=== PATIENT | male | born 1965 | race Caucasian/White ===

== ENCOUNTER → 2022-01-01 | Outpatient (CLI) | payer OTHER, SELFPAY ==
[2022-01-01 20:55] LABS: Absolute Lymphocyte Count 2.78 X10^3/uL (0.83-4.51); Absolute Neutrophil Count 5.1 X10^3/uL (2.0-7.7); Basophil# 0.06 X10^3/uL; Basophil% 0.7 % (0-1); Eosinophil# 0.34 X10^3/uL; Eosinophils% 3.7 % (0-5); Hemoglobin 17.3 g/dL (13.0-16.5); Lymphocyte # 2.78 X10^3/ul (0.83-4.51); Lymphocyte % 30.3 % (19-41); Mean Corp Hgb Conc 33.9 g/dL (32-36); Mean Corpuscular Hgb 28.4 pg (27.0-32.0); Mean Corpuscular Volume 83.7 fL (80-94); Monocyte# 0.86 X10^3/uL; Monocyte% 9.4 % (0-10); NRBC Flagged by Analyzer 0 % (0-5); Neutrophil # 5.09 X10^3/uL (2.7-7.7); Neutrophil % 55.6 % (47-70); Platelet Count 240 K/mm3 (150-450); RBC Distribution Width CV 14.1 % (11.6-14.6); RBC Distribution Width SD 42.8 fl (35.1-43.9); Red Blood Count 6.09 M/mm3 (4.6-6.2); White Blood Count 9.2 K/mm3 (4.4-11.0)
[2022-01-01 21:03] LABS: Erythrocyte Sedimentation Rate 10 mm/hr (0-20)
[2022-01-01 21:13] LABS: ALB/GLOB Ratio 1.2 RATIO (0.9-2.4); AST(SGOT) 26 U/L (15-37); Alanine Aminotransfer ALT/SGPT 34 U/L (16-61); Albumin, Serum 3.8 g/dL (3.2-5.0); Alkaline Phosphatase 248 U/L (45-117); Anion Gap 10 (5-15); BUN 5 mg/dL (7-18); BUN/Creat Ratio 6.6 RATIO (10-20); Calcium,Total 8.6 mg/dL (8.5-10.1); Chloride 108 mmol/L (98-107); Creatinine, Serum 0.75 mg/dL (0.70-1.30); EST Glomerular Filtration Rate 115 mL/min (>60); Est Glom Filt Rate - Afr Amer 139 mL/min (>60); Ferritin 55 ng/mL (26-388); Globulin 3.1 g/dL (2.2-4.2); Glucose 99 mg/dL (74-106); Iron 46 ug/dL (65-175); Potassium 3.7 mmol/L (3.5-5.1); Protein, Total 6.9 g/dL (6.4-8.2); Sodium Level 142 mmol/L (136-145); T4 Free Direct 1.04 ng/dL (0.76-1.46); Thyroid Stim Hormone (TSH) 0.97 uIU/mL (0.358-3.74)
[2022-01-01 22:03] LABS: Vitamin B12 518 pg/mL (211-911); Vitamin D,25 Hydroxy 26.2 ng/mL
[2022-01-09 14:08] LABS: Lyme IgG P18 Ab Absent (.); Lyme IgG P23 Ab Absent (.); Lyme IgG P28 Ab Absent (.); Lyme IgG P30 Ab Absent (.); Lyme IgG P39 Ab Absent (.); Lyme IgG P41 Ab Absent (.); Lyme IgG P45 Ab Absent (.); Lyme IgG P58 Ab Absent (.); Lyme IgG P66 Ab Absent (.); Lyme IgG P93 Ab Absent (.); Lyme IgM P23 Ab Absent (.); Lyme IgM P39 Ab Absent (.); Lyme IgM P41 Ab Absent (.)
[2022-01-10 18:24] LABS: DHEA Sulfate 66.9 ug/dL (71.6-375.4); Lyme IgG WB Interpretation Negative (.); Lyme IgM WB Interpretation Negative (.)
== END | disposition home or self-care (01) ==
PROVIDERS: Visit Provider Nurse Practitioner Family
DX: R53.83 Other fatigue (principal); R06.02 Shortness of breath; F32.A Depression, unspecified; R41.3 Other amnesia; U09.9 Post COVID-19 condition, unspecified
CPT/HCPCS: 80053; 82306; 82607; 82627; 82728; 83540; 83735; 84403; 84439; 84443; 85025; 85652; 86140; 86617; 82626

== ENCOUNTER 2023-10-04 14:38 | Outpatient (RCR) | payer OTHER, SELFPAY ==
[2023-10-04 15:18] VITALS: BP 153/93; PULSE 64; RESP 20; TEMP 36.4; BMI 33.0
--- NOTE | 2023-10-04 16:38 | HP.PCM_ITS ---
History of Present Illness Date of Service: 10/04/23 Chief Complaint: Right ring finger injury History of Wound: 58 year old male presents for follow up on his right ring finger wound. The wound initially occurred 09/21/23 when he was trying to separate 2 fighting pet rabbits and his finger was punctured by the rabbit wire in the cage. He then proceeded to go to [place] for work. While there the pain and swelling got much worse. He went to the ED, was admitted for IV antibiotics and was taken to surgery for an operative debridement on 09/27/23 at [facility] in [place], [place]. His wound care was to place Xeroform gauze and cover with cling. He was not given any xeroform to do dressing changes so he and his went to a local pharmacy and purchased something green and non adherent gauze to put on it. They have been cleansing it with sterile saline. He is currently taking Linezolid, Levaquin and Metronidazole for his positive wound cultures. He does not know what bacteria he was positive for. We will attempt to obtain his medical records from the hospital in [place]. He denies fever, chills, nausea and vomiting at this time. Progress of Wound: Right volar ring finger on the proximal portion of the finger with an open wound that is pink and moist with a superficial portion that goes around the circumference of the finger. Incision goes onto the palm of his hand where there are sutures present. There is maceration in between the long and ring finger and between the ring and small finger. No tendon or bone visible. He is able to touch his thumb to his index finger only. He has minimal movement in his ring finger, long finger and small finger due to the amount of swelling and pain that he is experiencing at this time. [facility] Medical History (Updated 10/05/23 @ 17:06 by Sara Chambers NP, GRAZING AIDE-C) Hyperlipidemia Hypertension Allergy/AdvReac Type Severity Reaction Status Date / Time No Known Allergies Allergy Verified 10/04/23 15:42 Family History (Updated 10/05/23 @ 16:51 by Sara Chambers NP, GRAZING AIDE-C) Father , at age 39 of heart attack Heart disease Mother Diabetes Cancer Social History (Updated 10/05/23 @ 16:50 by Sara Chambers GRAZING AIDE, GRAZING AIDE-C) current occupational status: employed history of recent travel: Yes ([facility]) Smoking Status: Never smoker alcohol intake: current alcohol intake frequency: holidays/special occasions only ROS Constitutional Constitutional: Denies chills or fever(s) Eyes Eyes: Reports none ENT HEENT: Reports none Cardiovascular Cardiovascular: Denies chest pain or dyspnea Respiratory/Chest Respiratory/Chest: Denies cough or dyspnea Gastrointestinal Gastrointestinal: Denies diarrhea, nausea or vomiting Musculoskeletal Musculoskeletal: Reports joint stiffness, joint swelling and limited range of motion Integumentary Integumentary: Reports wounds Neurologic Neurologic: Reports burning sensations Psychiatric Psychiatric: Reports none Endocrine Endocrinology: Reports none Vital Signs Vital Signs Vital Signs: 10/04/23 15:18 Temperature 97.6 F L Temperature Source Temporal Pulse Rate 64 Respiratory Rate 20 H Blood Pressure 153/93 H Blood Pressure Mean 113 Blood Pressure Source Monitor Weight Weight: 230 lb 1.011 oz Body Mass Index (BMI) 33.0 Physical Exam Const alert, oriented x3 and no apparent distress General Appearance: cooperative HEENT normocephalic Head and Scalp: normocephalic Eyes General Eye: normal appearance of both eyes Neck full ROM Lymph Lymphatic: no lymphedema noted Resp normal respiratory effort, normal air movement, no use of accessory muscles and clear to auscultation bilaterally Effort and Inspection: able to speak in complete sentences Cardio regular rate and regular rhythm GI soft to palpation and non-tender Auscultation: normoactive bowel sounds Back/Spine normal ROM Extremity normal capillary refill Peripheral Pulses: Yes pulses 2+ throughout Skin Wound Narrative: Right volar ring finger on the proximal portion of the finger with an open wound that is pink and moist with a superficial portion that goes around the circumference of the finger. Incision goes onto the palm of his hand where there are sutures present. There is maceration in between the long and ring finger and between the ring and small finger. No tendon or bone visible. He is able to touch his thumb to his index finger only. He has minimal movement in his ring finger, long finger and small finger due to the amount of swelling and pain that he is experiencing at this time. Neuro oriented x3 and CN's II-XII intact bilaterally Debridement Note Debridement Note No debridement was completed: No debridement was completed today Post-Debridement Measurements and Additional Note: Post-Debridement Measurements/Treatment WC - Nurse 1 - General Ulcer Assessment Start: 10/04/23 15:14 Freq: Status: Active Protocol: TRICE Activity Type Activity Date Activity User E-sign Co-sign Detail Recorded Client Recorded Date Recorded By Document 10/04/23 15:18 DL [id number] 10/04/23 15:36 DL 10/04/23 15:18 - Today's Visit Information Type of service Initial Visit Arrival Mode Ambulatory Transfer Assistance None Patient Identification Verified (Name & Yes ) Patient Requires Transmission-Based No Precautions Height and Weight Height 5 ft 10 in Weight 230 lb 1.011 oz Weight in Pounds 230.1 lbs Body Mass Index (BMI) 33.0 BMI Classification Obese BSA - Faizan 2.22 Vital Signs Temperature (97.8 F-99.1 F) 97.6 F L Temperature Source Temporal Pulse Rate (60-100) 64 Pulse Location Monitor Respiratory Rate (12-18) 20 H Respiratory rate source Observation Blood Pressure (90/60-120/80) 153/93 H Blood Pressure Mean 113 Source Monitor Pain Scale: 0-10 Numeric Is Patient Pain Free? Yes - Nurse 1 - General Ulcer Measurement Start: 10/04/23 15:14 Freq: Status: Active Protocol: Activity Type Activity Date Activity User E-sign Co-sign Detail Recorded Client Recorded Date Recorded By Document 10/04/23 15:18 DL 25.7 10/04/23 15:36 DL 10/04/23 15:18 Wound Center Nurse 1 #1 R 3rd finger/Hand CLUSTER -Current Size (cm) - Length 4.8 -Current Size (cm) - Width 7 -Current Size (cm) - Depth 0.2 -Total Square Cm 33.6 -Photo Taken Yes -Classification - Thickness Full Thickness without Exposed Support Structure -Exudate Amt Medium -Exudate Type Serosanguineous -Wound Margin Distinct, Outline Attached -Granulation Amt None Present (0 %) -Necrosis Amt Large (67-100%) -Necrotic Tissue Type Adherent Slough -Structure Exposed N/A -Texture (Cecy-wound Skin Appearance) Localized Edema ,Scarring -Moisture (Cecy-wound Skin Appearance) No Abnormality -Color (Cecy-wound Skin Appearance) Erythema -Temperature (Cecy-wound Skin No Abnormality Appearance) (Pt Warm) -Tenderness on Palpation (Cecy-wound No Skin Appearance) -Ulcer Cleansing Soap and Water -Foul Odor after Cleansing No -Anesthetic Used 4% Lidocaine Solution - Nurse 2 - General Ulcer CM Notes Start: 10/04/23 15:14 Freq: Status: Active Protocol: Activity Type Activity Date Activity User E-sign Co-sign Detail Recorded Client Recorded Date Recorded By Document 10/04/23 15:59 [facility] [id number] 10/04/23 16:21 [facility] 10/04/23 15:59 Wound Center Nurse 2 -Time 16:00 -Post Debridement (cm) - Length 5 -Post Debridement (cm) - Width 9 -Post Debridement (cm) - Depth 0.1 -Total Square (Post) (cm) 45 -Area of Debridement (cm) - Length 5 -Area of Debridement (cm) - Width 9 -Total Square (Area) (cm) 45 -Tunneling No -Undermining/Tunneling No -Wound/Ulcer Outcome Not Healed -Ulcer Cleansing Rinsed/ Irrigated with Saline -Foul Odor after Cleansing No -Bioengineered Tissue No -Bleeding Controlled with NA Pain Scale: 0-10 Numeric Is Patient Pain Free? Yes - Nurse 3 - General Ulcer D/C NN Start: 10/04/23 15:14 Freq: Status: Active Protocol: Activity Type Activity Date Activity User E-sign Co-sign Detail Recorded Client Recorded Date Recorded By Document 10/04/23 16:27 KW fg\ 10/04/23 16:28 KW 10/04/23 16:27 Wound Care Center Nurse 3 #1 R 3rd finger/Hand CLUSTER -Primary Dressing Applied NonAdherent Contact Layer -Other Dressing XEROFORM -Primary Dressing Covered/Secured with Dry Gauze & Roll Gauze, Secured with Tape Pain Scale: 0-10 Numeric Is Patient Pain Free? Yes - Visit Discharge Discharge Condition Stable Ambulatory Status Ambulatory Transportation Private Auto Medication Reconcilliation completed & No provided to patient/care provider Clinical Summary of Care Provided Yes Charges/Coding Visit Charges Office Visits / Consults: [id number] OV L3 New 30min Assessment/Plan Assessment/Plan (1) Puncture wound of finger of right hand: CODE(S): S61.239A - Puncture wound without foreign body of unspecified finger without damage to nail, initial encounter QUALIFIERS: Encounter type: initial encounter Qualified Code(s): S61.239A - Puncture wound without foreign body of unspecified finger without damage to nail, initial encounter (2) Pain in finger of right hand: CODE(S): M79.644 - Pain in right finger(s) (3) Stiffness of finger joint of right hand: CODE(S): M25.641 - Stiffness of right hand, not elsewhere classified (4) Prediabetes: CODE(S): R73.03 - Prediabetes (5) History of incision and drainage: CODE(S): Z98.890 - Other specified postprocedural states PLAN: Plan Patient evaluated at the wound healing center today. He recently had surgery on his right ring finger for I&D on 09/27/23 in [place]. He is currently on Linezolid, Levaquin, and Metronidazole for positive cultures. Will attempt to get notes from the hospital where he had his surgery ([facility], [facility] in [facility] Wound Care - Gently wash with soap and water. Pat dry. Apply xeroform gauze covered with gauze and then wrapped with cling. Keep hand elevated to help with swelling. Will have him follow up next week at the wound healing center with Dr. Sanchez for further evaluation of his right ring finger. Dr. Sanchez is a plastic surgeon who does hands. Instructed to call or come in sooner if develop any concerns.
--- NOTE | 2023-10-08 08:39 | WC ---
PHOTO 10/04/23 RIGHT THIRD FINGER
--- NOTE | 2023-10-08 08:41 | WC ---
PHOTO 10/04/23
--- NOTE | 2023-10-11 09:42 | WC ---
PHOTO 10/04/23 RIGHT THIRD FINGER
--- NOTE | 2023-10-11 09:43 | WC ---
PHOTO 10/04/23 RIGHT THIRD FINGER
== END 2023-10-06 23:59 | disposition home or self-care (01) ==
LOC: WC 14:38
PROVIDERS: PCP Internal Medicine Infectious Disease; Referring Provider Internal Medicine Infectious Disease; Visit Provider Nurse Practitioner Family
DX: S61.234D Puncture wound without foreign body of right ring finger without damage to nail, subsequent encounter (principal); I10 Essential (primary) hypertension; R73.03 Prediabetes; E78.5 Hyperlipidemia, unspecified; M79.644 Pain in right finger(s); M25.641 Stiffness of right hand, not elsewhere classified; Z98.890 Other specified postprocedural states; W26.8XXD Contact with other sharp object(s), not elsewhere classified, subsequent encounter
CPT/HCPCS: 99203; 99204; G0463

== ENCOUNTER → 2023-10-08 | Outpatient (CLI) | payer OTHER, SELFPAY ==
--- NOTE | 2023-10-08 14:42 | RAD_ITS ---
EXAM: XR RIGHT HAND COMPLETE, 3 OR MORE VIEWS CLINICAL INDICATION: Hand wound TECHNIQUE: Frontal, lateral and oblique views of the right hand. COMPARISON: No relevant prior studies available. FINDINGS: BONES/JOINTS: Diffuse IP joint narrowing of the second through fifth digits mild periarticular osteophytes. Old healed fracture of the fifth metacarpal mild sclerosis and angulation. SOFT TISSUES: There is soft tissue swelling at the fourth digit with surrounding bandage and artifact. No visible foreign body or bone defect. RAD/Hand Min 3 Views IMPRESSION: 1. Fourth digit soft tissue changes. 2. No visible foreign body or fracture. Artifacts from overlying dressing 3. Degenerative IP changes and old healed fifth metacarpal fracture. Electronically Signed: Shanice Singer MD at 0:42 EDT ,
== END | disposition home or self-care (01) ==
LOC: RAD 14:41
PROVIDERS: PCP Internal Medicine Infectious Disease; Referring Provider Surgery Plastic and Reconstructive Surgery; Visit Provider Surgery Plastic and Reconstructive Surgery
DX: S61.204A Unspecified open wound of right ring finger without damage to nail, initial encounter (principal)
CPT/HCPCS: 73130

== ENCOUNTER 2023-10-13 05:57 | Day surgery (SDC) | payer OTHER, SELFPAY ==
[2023-10-13 06:30] VITALS: BP 93/75; PULSE 72; RESP 18; TEMP 36.6; O2SAT 100; BMI 33.5
[2023-10-13] MEDS: Lactated Ringers 1,000 ML 15 ML IV (06:44)
[2023-10-13 07:10] VITALS: BP 104/76; BP 104/77; BP 105/74; BP 106/77; BP 106/78; BP 107/79; BP 108/78; BP 110/77; BP 111/78; O2SAT 96; O2SAT 97; O2SAT 98
--- NOTE | 2023-10-13 07:18 | HP.PCM_ITS ---
HPI - General HPI Narrative From my h&p Eugeniogelacio Heard is a 58-year-old Right hand dominant male with past medical history of HTN, DM, CAD s/p stent (on Xarelto) who presents today for a right ring finger wound sustained on 21 September 2023 in [facility]. The finger was punctured/scraped on rabbit cage wire while he was attempting to separate rabbits that were fighting. He then went to [place] for work ( ), where, upon chart review of hospital records, he subsequently developed flexor tenosynovitis of the right ring finger was taken to surgery for a washout of the tendon sheath and A1 lizet release on 27 September 2023 at [facility] in [place]. I reviewed the operative note. I was not able to review the imaging, so I ordered a hand x-ray today. His wound was treated thereafter with Xeroform and cling. His cultures grew E. coli, S. aureus, and strep viridians, and he was placed on linezolid, Levaquin, metronidazole and discharged home. He was seen by wound care provider at our wound care center at [facility] on 04 October 2023 and was subsequently referred to my clinic for management of the volar ring finger wound. Today the patient presents with sharp, severe pain on the volar right ring finger at the wound. It is improved by rest and elevation, and worsened by movement. He reports that he has been doing xeroform daily for wound care. No recent fevers or chills. Denies any bites (finger was injured from the cage). He is up-to-date on his tetanus shot. Patient does not smoke. He takes Xarelto for history of heart attack and stent placement in 2019. No change today in health history since last seen [facility] Medical History (Updated 10/12/23 @ 15:02 by Natividad Cabrera) Wears glasses Depression Anxiety Alcohol use Open wound Insulin dependent diabetes mellitus High cholesterol Back pain Dietary restriction History of IBS Former smoker On home oxygen therapy Shortness of breath on exertion CPAP (continuous positive airway pressure) dependence History of echocardiogram History of stress test Cardiology follow-up encounter COVID History of heart attack History of gout Hyperlipidemia Hypertension Home Medications ?Medication ?Instructions ?Recorded ?Last Taken ?Type atorvastatin 80 mg tablet 80 mg PO DAILY 10/08/23 10/12/23 History blood-glucose sensor (Dexcom G7 #1 ea 10/08/23 Unknown History Sensor device) empagliflozin 25 mg tablet 25 mg PO DAILY 10/08/23 Unknown History (Jardiance) glimepiride 2 mg tablet 2 mg PO DAILY 10/08/23 Unknown History hydrocodone 7.5 mg-acetaminophen 1 tab PO Q6H PRN PRN moderate pain 10/08/23 10/12/23 History 325 mg tablet icosapent ethyl 1 gram capsule 2 g PO BID 10/08/23 10/12/23 History insulin NPH-regular 70-30 U-100 24 unit subcut BID 10/08/23 10/12/23 History insulin 100 unit/mL subcutaneous pen (Humulin 70/30 U-100 KwikPen) levofloxacin 500 mg tablet 500 mg PO DAILY 10/08/23 10/12/23 History linezolid 600 mg tablet 600 mg PO BID 10/08/23 10/13/23 History lisinopril 20 mg tablet 20 mg PO DAILY 10/08/23 10/13/23 History metformin 1,000 mg tablet 1,000 mg PO BID 10/08/23 10/12/23 History metoprolol succinate 50 mg 50 mg PO DAILY 10/08/23 10/13/23 History tablet,extended release 24 hr metronidazole 500 mg tablet 500 mg PO TID 10/08/23 10/13/23 History pen needle, diabetic 32 gauge x #1,200 ea 10/08/23 Unknown History (Easy Touch) rivaroxaban 2.5 mg tablet (Xarelto) 2.5 mg PO BID 10/08/23 10/12/23 History spironolactone 25 mg tablet 25 mg PO DAILY 10/08/23 10/12/23 History aspirin 81 mg tablet,delayed 81 mg PO DAILY 10/12/23 10/12/23 History release (Adult Low Dose Aspirin) ondansetron 4 mg disintegrating 4 mg PO DAILY PRN PRN nausea and 10/12/23 Unknown History tablet vomiting Allergy/AdvReac Type Severity Reaction Status Date / Time No Known Allergies Allergy Verified 10/12/23 14:45 Family History Father , at age 39 of heart attack Heart disease Mother Diabetes Cancer Surgical History (Updated 10/12/23 @ 15:02 by Natividad Cabrera) History of cardiac catheterization History of coronary artery stent placement History of incision and drainage Hx of right knee surgery History of rotator cuff surgery Social History (Updated 10/08/23 @ 15:17 by Pat Blanc) current occupational status: employed history of recent travel: Yes ([employer]) Smoking Status: Former smoker alcohol intake: current alcohol intake frequency: holidays/special occasions only additional social history: Pt denies vaping, denies marijuana use, denies edibles, denies ibuprofen use, uses 81mg aspirin daily Vital Signs Vital Signs Vital Signs: 10/13/23 06:30 10/13/23 06:30 Temperature 97.8 F Temperature Source Temporal Pulse Rate 72 Respiratory Rate 18 Respiratory Pattern Normal Blood Pressure 93/75 Blood Pressure Mean 81 Blood Pressure Source Monitor Blood Pressure Position Sitting Blood Pressure Location Left Arm Pulse Ox 100 Oxygen Delivery Method Room Air Weight Weight: 233 lb 11.04 oz Body Mass Index (BMI) 33.5 Physical Exam Narrative Right Upper Extremity: Volar wound over the ring finger, full-thickness to the subcutaneous tissue over P1. Fibrinous debris and necrotic eschar in the wound bed. No exposed neurovascular bundles or other critical structures at risk of dessication/exposure, but some fibrinous exudate and eschar keeping overlying incision from healing. No surrounding induration or fluid collections. Volar palm incision over A1 of ring from previous surgery is healing, and was approximated with a Nylon suture. Palpation: No ulnar or radial instability at ring finger DIP, PIP, or MP joints. No dorsal subluxation/dislocations at any joints. Motor: Finger resting in flexion. Able to bend and extend DIP, PIP, and MP, but exam limited 2/2 pain from the volar wound. He is able to get ring finger 3 cm from his palm (unable to completely flex) Sensory exam on the Right Right Finger (RRF) 7 mm two point on the ulnar border of the RRF at the DIP joint level No two point discriminating on the ulnar side of the RRF at the DIP joint level (Sensation to touch with caliper, but no two point) Contralateral left ring finger had 3 mm two point on radial and ulnar sides. Vascular: Ring finger warm and well perfused, <2 second capillary refill. Sensation exam was as follows Assessment & Plan Assessment/Plan (1) Open wound of right ring finger: PLAN: Plan OR today for debridement/wash out of right ring finger under local I talked to him extensively about stiffness, working with us to continue ROM to prevent stiffness, risks of bleeding, damage to surrounding structures, failure to salvage the ring finger. He agreed to proceed. Charges/Coding Visit Charges Inpatient E&M: 42552 Subs Hosp L1
[2023-10-13 07:23] LABS: Bedside Glucose 84 mg/dL (74-106)
[2023-10-13] MEDS: diazePAM 5 MG Tablet PO (07:28)
[2023-10-13] MEDS: Lidocaine 1% (20 ml mdv) 20 ML Vial (07:46)
[2023-10-13] MEDS: Lidocaine 1% /Epi 1:100 (20ml) 20 ML Vial (08:33)
--- NOTE | 2023-10-13 08:54 | DCINST_ITS ---
Discharge Instructions Follow Up Care Test Results: Test results from this visit will be discussed in further detail at your follow- up appointment, if applicable. Pending Tests Upon Discharge: Plastic Surgery Discharge Instructions ? Operations Performed: wound debridement and partial closure Instructions for My Care at Home or Healthcare Facility The following instructions will help you know what to expect in the days following surgery. These are general instructions. Your surgeon and therapist may give you special instructions, which vary to some degree based on your specific procedure -- follow those as directed. Do not, however, hesitate to ca ll if you have any questions or concerns. Splint Care/Dressing Care/Wound Care * Dressings - You may have a dressing over the operative site. * If the dressing feels too tight after you get home, it is ok to gently pull on the dressing to stretch it out/loosen it. * Avoid smoking or other tobacco products. Smoking tobacco impairs wound healing and increases the risks of post-operative complications. * Continue silver alginate and Dial soap soaks twice daily as instructed ? Activities * For the first 4 weeks after surgery, try to balance your activity, allowing time for rest. * Avoid lifting, pushing, or pulling anything with the affected hand . * Do not drive or operate heavy machinery within 24 hrs of surgery or while taking narcotic pain medication.? Pain Control/Medications * If you received an anesthetic block, your hand or arm may be numb for several hours. You will be discharged to home with medications, including an oral pain medication (analgesic). Rest and elevation are still one of the most important factors for pain control. Take your pain medication as needed, but do not wait for the pain to become out of control. * For severe pain, you may take prescription pain medication as directed, but please note that this may also contain Tylenol (e.g. Percocet). Do not take more than 4000mg of Tylenol (acetaminophen) from all sources daily.? * Pain medication may cause some lethargy, nausea, and or constipation. You should not drive/operate dangerous machinery while taking these medications. If these or other symptoms become significantly problematic, please your surgeon's office. * If prescribed oral antibiotics (Keflex, Clindamycin, or others), please take prescription for full duration as instructed. You should not have any pills remaining once completed (refills are written for your convenience should the course need to be extended, but generally they are not required). Diet (what I can eat): Resume normal diet as before or [ ] Follow up * You will be seen (most likely) 1 to 2 weeks after surgery depending on the procedure. Follow-up appointment reminders:? (A list of any scheduled appointments is at the end of this document)? At your earliest convenience, please call [phone] to confirm/schedule a follow-up appointment with in clinic. When to call your surgeon: * If any signs of surgical site infection develop: redness, pus, pain, increased swelling or foul odor at the incision site, fever, cold and clammy skin, or confusion. * Consistent temperature above 101?F (38.3?C). * The affected area gets swollen or much more painful. * You have excessive bleeding from surgical site (soaking through). If you experience difficulty breathing and/or shortness of breath, seek immediate medical attention. If experiencing any of the above complications or if you have any questions, during business hours (8am to 5pm) call or after hours (including weekends) call ([facility]) and ask for the Plastic Surgeon global marketing operations manager. Discharge Plan Admission Primary Reason for Your Visit: Surgery Attending Provider: Abdiel Sanchez Primary Care Provider: Cate Ulrich Instructions Print Language: Turkish Discharge Orders/Prescriptions Prescriptions: No Action metronidazole 500 mg tablet 500 mg PO TID linezolid 600 mg tablet 600 mg PO BID levofloxacin 500 mg tablet 500 mg PO DAILY hydrocodone-acetaminophen 7.5-325 mg tablet 1 tab PO Q6H PRN PRN (Reason: moderate pain) Xarelto 2.5 mg tablet 2.5 mg PO BID icosapent ethyl 1 gram capsule 2 g PO BID Jardiance 25 mg tablet 25 mg PO DAILY (DME) Dexcom G7 Sensor Device See Rx Instructions .ROUTE Q10D Qty: 1 Rx Instructions: As directed metformin 1,000 mg tablet 1,000 mg PO BID spironolactone 25 mg tablet 25 mg PO DAILY lisinopril 20 mg tablet 20 mg PO DAILY metoprolol succinate 50 mg tablet extended release 24 hr 50 mg PO DAILY atorvastatin 80 mg tablet 80 mg PO DAILY (DME) pen needle, diabetic [Easy Touch] 32 gauge x 5/32 needle See Rx Instructions .ROUTE BID Qty: 1200 Rx Instructions: As directed Humulin 70/30 U-100 KwikPen 100 unit/mL (70-30) insulin pen 24 unit subcut BID glimepiride 2 mg tablet 2 mg PO DAILY aspirin [Adult Low Dose Aspirin] 81 mg tablet,delayed release (DR/EC) 81 mg PO DAILY ondansetron 4 mg tablet,disintegrating 4 mg PO DAILY PRN PRN (Reason: nausea and vomiting) Referrals / Follow Up: Cate Ulrich MD [Primary Care Provider] - Disposition Disposition (needs filled in before D/C Order can be placed): Home, Self Care
[2023-10-13 09:01] VITALS: BP 93/75; BP 99/77; PULSE 78; RESP 16; TEMP 36.1; O2SAT 98
--- NOTE | 2023-10-13 09:07 | PCM.OP.BLANK ---
Operative Report Date of Procedure: 10/13/23 Surgery/Procedure Date: 13 October 2019 Incision/Procedure Start Time: 7:58 AM Incision Close/Procedure End Time: 8:34 AM Surgeon(s)/Proceduralist(s) and Varnish Dipper(s): Abdiel Sanchez MD Pre-Op/Pre-Procedure Diagnosis: Volar right ring finger wound after incision and drainage for flexor tenosynovitis at an outside hospital Post-Op/Post-Procedure Diagnosis: Same as above Procedure(s): 1.? Excision of right ring finger volar wound including skin and subcutaneous necrotic tissue, 2 x 3 cm, CPT Code: 34782 2.? Delayed primary simple closure, volar ring finger wound, 2 cm, CPT Code 24495 Findings: No proximal A4 lizet and no A3 lizet at the base of the wound at the start of the case Indications: Amish Chandler is a 58-year-old male who recently developed flexor tenosynovitis while visiting [place] for a business trip. He presented to my clinic on Wednesday, 08 October 2023, with a volar right ring finger wound status post the [place] I&D. Significant necrotic debris requiring wound care and and trip to the OR for debridement was indicated. The Barbra incisions had not healed and/or dehisced. His baseline sensory exam was noted to be greatly diminished preoperatively (before my operation) on this finger, as he did not have any 2-point discrimination on the radial side and 7 mm 2-point discrimination on the ulnar side distal to the surgical incisions. He has been following with infectious disease with the cultures that grew at the outside hospital and has been on appropriate broad-spectrum antibiotics (endorses taking them as prescribed). Presents today for wound excision. He understands the risks and benefits and he understands that there is no guarantee that we will be able to get the wound healed in 1 stage, no guarantee that we will salvage the digit, especially in the setting of his diabetes. He is at risk for severe volar scar contractures. Anesthesia: Valium (5mg PO preoperative) and 1% lidocaine plane, 16 cc Procedure Details: Consent was obtained preoperatively.? Patient was brought to the operating room and placed on the table in a supine position.? A sign in was completed and I performed a local block with 1% lidocaine without.? The open wound was then prepped and draped with Betadine in usual sterile fashion.? A timeout was completed. The digital neurovascular bundles were seen at the radial and ulnar borders of the wound and were identified and protected . We then facilitated excision of the necrotic subcutaneous and dermal tissue from the wound bed with a combination of a scalpel and tissue scissors back to healthy bleeding viable tissue.? The wound was then thoroughly irrigated with saline irrigation (3 L). I then took a small tissue culture on the underside of the triangular flap and sent for aerobic, anaerobic, fungal, and acid-fast. The entire excision was 2 x 3 cm. There is no signs of acute infection/purulence. Hemostasis was obtained with bipolar electrocautery gentle pressure. The tip of the digit was warm and well-perfused with less than 2-second capillary. We then turned our attention to covering the tendons with soft tissue and covering the neurovascular bundles with soft tissue. The Barbra flap was then advanced at its corner to the opposing accepting corner of the incision for closure over the tendon and neurovascular bundles. It was sutured into place with 2 interrupted 3-0 nylon sutures. The proximal and distal portions of the incision, which had subcutaneous tissue at the base, were left open and packed with silver alginate. Corazon and Coban were applied loosely. The entire delayed primary simple closure was 2 cm. All counts were correct at the completion of the case and the patient tolerated the procedure well was taken the PACU in stable condition. Estimated Blood Loss: 5 cc Specimens: Cultures (tissue culture) Complications: No immediate postoperative complications IV Fluids: 200 cc NS Postoperative plan: Patient will go home after surgery today. He is getting his labs drawn (A1c, prealbumin, and albumin) to help to monitor his overall wound healing potential and need for better nutrition or control of his diabetes. In the meantime for the areas of the wound bed that are still open, I spoke with him and his about continuing silver alginate twice daily with twice daily Dial soap soaks and elevation of his right hand above his heart. I will see him again on Wednesday, 15 October 2023, to reassess the wound and consider referral to therapy. I talked to him extensively about not getting stiff and continuing gentle passive and active range of motion. Procedures Add on/Second Study CF Procedures 9xxxx Addon/2nd Proc: Other Procedure See Report
[2023-10-13 09:16] VITALS: BP 93/75
[2023-10-13 10:34] LABS: Albumin, Serum 3.3 g/dL (3.2-5.0)
[2023-10-13 10:49] LABS: Hemoglobin A1c 7.5 % (3.8-5.6)
[2023-10-14 05:07] LABS: Prealbumin 32 mg/dL (10-36)
== END 2023-10-13 09:21 | disposition home or self-care (01) ==
LOC: SDC 06:01 → AC 06:01
PROVIDERS: PCP Internal Medicine Infectious Disease; Referring Provider Surgery Plastic and Reconstructive Surgery; Visit Provider Surgery Plastic and Reconstructive Surgery
PROC: (CPT 26055; principal; 2023-10-13 07:20)
DX: M65.88 Other synovitis and tenosynovitis, other site (principal); E11.9 Type 2 diabetes mellitus without complications; Z79.4 Long term (current) use of insulin; I10 Essential (primary) hypertension; E78.00 Pure hypercholesterolemia, unspecified; I25.10 Atherosclerotic heart disease of native coronary artery without angina pectoris; I25.2 Old myocardial infarction; Z87.891 Personal history of nicotine dependence; Z79.82 Long term (current) use of aspirin; Z79.899 Other long term (current) drug therapy; Z79.84 Long term (current) use of oral hypoglycemic drugs; Z79.01 Long term (current) use of anticoagulants; Z86.16 Personal history of COVID-19; Z95.5 Presence of coronary angioplasty implant and graft
CPT/HCPCS: 11042; 12020; 36415; 82040; 82962; 83036; 84134; 87015; 87070; 87075; 87116; 87176; 87205; 87206; J7120

== ENCOUNTER 2024-01-03 13:00 | Outpatient (RCR) | payer OTHER, SELFPAY ==
--- NOTE | 2023-11-22 14:32 | HP.OTEVAL ---
Patient's Visit Information Visit Information Visit Information: MEIR JOYCE is a 58 year old M, referred to Occupational Therapy by Dr. Abdiel Sanchez MD, with a diagnosis of open wound of R ring finger. Date of Evaluation: 11/16/23 Occupational Therapist: INDERJIT sIsa/Jasson, CHT Subjective Subjective: this 58-year-old male arrives with dx of open wound of right ring finger. pt hit finger on rabbit cage door which caused puncture wound 09/20- went to ER after few days for antibiotics then saw doctor for surgery 09/26. pt is right-handed. 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 pt has difficulty opening doors, lifting heavy items, work tasks, writing, tying shoes and other daily functional tasks. ROM PIP: R RF -34/65 L RF 0/100 Strength Behavioral Therapy Coordinator: R 12# L 47# Lateral Pinch: R 17# L 17# Tripod Pinch: R 14# L 18# Sensation Ring: R 4.56 L 2.83 Sensation Comments: all other fingers 2.83 R RF 4.56 Quick DASH-Disab of Arm,Shoulder& Hand Quick DASH Score: 50.0000 Goals Goal:Daily scar massage when approriate: Yes Goal:ROM equal to unaffected hand: Yes Goal:Behavioral Therapy Coordinator/Pinch strength at least 75% of unaffected hand: Yes Goal:Full use of affected hand in daily activities including work: Yes Goal:Improvement in sensation documented by [place] monofiliaments: Yes Goal:Decrease scar hypersensitivity: Yes Other Goal: pt will improve QuickDASH score by 30 points or more to maximize use of R hand. (50.0) pt will report increase I in all ADLs/IADLs by end of POC. Rehabilitation General Assessment: this 58-year-old male arrives with dx of open wound of right ring finger resulting in limited ROM, decreased sensation and strength of R hand limiting pt ability to complete everyday functional tasks and work tasks. pt is recommended to complete OT services 1x a week for 1 week and schedule out as needed to address above impairments. Therapy session was directly supervised and doc. approved by Esme JANSEN/Jasson,FERCHOT. Rehabilitation Potential: Good Anticipated Interventions Anticipated Interventions: A/AAROM/PROM, Strengthening, Scar Care, Sensory Retraining, Modalities, Joint Protection/Energy Conservation, Ergonomic Education, Education re assistive Equipment, Education re Diagnosis and Home Program Visit Plan Frequency: 1x/Week Duration: 6 Weeks General Plan: scar care improve ROM increase strength use hand normally again TEXT: Thank you for the opportunity to evaluate your patient. For Medicare and Medicare HMO plans, please review the plan of care and approve it. It will need to be FAXED BACK to us at [phone] for Medicare purposes. Please let me know if there are questions or concerns regarding this plan of care. Physician Signature: Date:
--- NOTE | 2024-01-03 13:32 | HP.OTDCSUM ---
Discharge Summary D/C Summary: It has been my pleasure to treat MEIR JOYCE under orders from Dr. Abdiel Sanchez MD, for the diagnosis of open wound of R ring finger for a total of 8 visit(s). Please see the following information for a summary of their discharge status. 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# Goals Patient Goals: Regain Strength, Return to Work, Use Hand/Wrist/Arm Normally Again, Increase ROM, Be More Independent in ADLS, Resume Former Household Responsibilities (Cooking,Cleaning,Yard, etc.) and Resume Hobbies Goal:Daily scar massage when approriate: Yes Goal:ROM equal to unaffected hand: Yes Goal:Clinical Administrative Coordinator/Pinch strength at least 75% of unaffected hand: Yes Goal Progress: Goal Met Goal Progress: Goal Met Goal:Full use of affected hand in daily activities including work: Yes Goal Progress: Goal Met Goal:Improvement in sensation documented by [place]-Darryn monofiliaments: Yes Goal:Decrease scar hypersensitivity: Yes Other Goal: pt will improve QuickDASH score by 30 points or more to maximize use of R hand. (50.0) pt will report increase I in all ADLs/IADLs by end of POC. Goal Progress: Goal Met Plan Plan: D/c D/C Information Discharge Comments: pt was seen for 8 OT sessions. Demo increased strength and ROM from his initial eval- Pt has returned to using his hand with all ADLs and work tasks- feels he has 70% of his ability back- therapist advised pt with joint protection kayla as needed for OA symptoms- ed. pt he can wean out of night orthosis as needed over next three months- to cont. with reverse blocking ex to increase finger PIP ext. but also adding in PIP flexion to get composite fist- pt demo understanding and agree to POC. d/c sentence: If there are questions or concerns regarding this patient's occupational therapy, please fell free to call me at [phone]. Thank you for the referral of this patient. Sincerely, Esme Mathews, OTR/L, CHT
== END 2024-01-03 19:00 | disposition home or self-care (01) ==
LOC: OT 13:00
PROVIDERS: PCP Internal Medicine Infectious Disease; Referring Provider Surgery Plastic and Reconstructive Surgery; Visit Provider Surgery Plastic and Reconstructive Surgery
DX: S61.204D Unspecified open wound of right ring finger without damage to nail, subsequent encounter (principal)
CPT/HCPCS: 97110; 97140; 97165; 97166; 97530; 97760